=== PATIENT | male | born 1995 | race Caucasian/White ===

== ENCOUNTER 2024-01-06 15:53 | Emergency (ER) | payer OTHER, SELFPAY ==
[2024-01-06 16:05] VITALS: BP 153/86; PULSE 86; TEMP 36.8; O2SAT 99; BMI 22.4
--- NOTE | 2024-01-06 16:09 | XR_ITS ---
The [address] [address] Patient Name: MASSIMO VANCE MRN: [id number] date: 1995 Sex: M Assigned Patient Location: ER Current Patient Location: Accession/Order Number: [id number] Exam Date: 01/06/2024 16:35 Report Date: 01/06/2024 17:59 At the request of: JOSE CISNEROS Procedure: XR hand LT min 3V EXAM: XR hand LT min 3V HISTORY: trauma COMPARISON: None. TECHNIQUE: 3 views of left hand were obtained. FINDINGS: There is no evidence of an acute fracture or dislocation. The joint spaces are intact. No significant focal osseous abnormality is identified. The soft tissues are intact. XR/XR hand LT min 3V IMPRESSION: No acute fracture or dislocation. The joint spaces are intact throughout. Electronically authenticated by: OSMANI GALEANO Date: 01/06/2024 17:59
--- NOTE | 2024-01-06 17:04 | ED.UPPEXIN1 ---
HPI HPI - Extremity Injury (Upper) General Chief Complaint: Extremity Injury, Upper Stated Complaint: UPPER EXTREMITY INJURY Time Seen by Provider: 01/06/24 16:07 Mode of arrival: walk-in History of Present Illness HPI narrative: The patient is coming to the ER with left hand injury that he obtained while playing football he said that he was trying to catch the ball when it hit his thumb vertically, the patient has been complaining of pain in his left thumb since then There is a limitation of movement of the thumb due to the pain Related Data Previous Rx's ?Medication ?Instructions ?Recorded ibuprofen 600 mg tablet 600 mg PO Q8H #9 tabs 01/06/24 Allergies Allergy/AdvReac Type Severity Reaction Status Date / Time acetaminophen (From Vicodin) AdvReac Severe Dizziness Verified 01/06/24 16:04 hydrocodone (From Vicodin) AdvReac Severe Dizziness Verified 01/06/24 16:04 Opioid HPI Opioid Management Most Recent Pain and Opioid Data: Last Pain Scale 6 01/06/24 16:10 01/06/24 Review of Systems ROS Status of ROS 10 or more systems reviewed and unremarkable except as noted in history and below PFSH PFSH Social History Little interest or pleasure in doing things: not at all Feeling down, depressed, or hopeless: not at all Exam Narrative Exam Narrative: Nurses notes and vital signs reviewed and patient is not hypoxic. Right hand examination was benign left hand examination showed no vascular injury detected the patient has good radial pulse there is no open wounds and no deformities The patient have limitation of abduction of the thumb on the left hand due to pain no tenderness at the scaphoid fossa General: Well-appearing and in no apparent distress. Skin: Warm, dry, no pallor noted. No rash. Head: Normocephalic, atraumatic. Neck: Supple, non-tender. Eye: Pupils are equal, round and EOMI. No scleral icterus. Ears, Nose, Mouth, and Throat: TM are clear, no nasal mucosal hypertrophy. Oral mucosa is moist, no posterior oropharynx erythema, uvula is mid-line Cardiovascular: Regular Rate and Rhythm without murmur, gallop or rub. Respiratory: No accessory muscle use or respiratory distress. Lungs are clear to auscultation, no wheezing, rales or rhonchi Chest Wall: no tenderness Back: No midline thoracic or lumbar vertebral tenderness. No CVA tenderness Musculoskeletal: normal ROM, no calf or popliteal tenderness, no lower extremity edema/swelling GI: Abdomen is soft, non-distended. Normal bowel sounds. No masses appreciated. No tenderness to palpation. No rebound, guarding, or rigidity noted. Neurological: A&O x4. No cranial nerve dysfunction observed. No truncal ataxia. Moves all extremities. Sensation intact. Psychiatric: Cooperative and interactive. Normal mood and affect. Constitutional Vital Signs, click to edit/add: Last Vital Signs Temp 98.2 F 01/06/24 16:05 Pulse 86 01/06/24 16:05 Resp 18 01/06/24 16:05 BP 153/86 H 01/06/24 16:05 Pulse Ox 99 01/06/24 16:05 O2 Del Method Room Air 01/06/24 16:05 Course Vital Signs Vital signs: Vital Signs Temperature 98.2 F 01/06/24 16:05 Pulse Rate 86 01/06/24 16:05 Respiratory Rate 18 01/06/24 16:05 Blood Pressure 153/86 H 01/06/24 16:05 Pulse Oximetry 99 01/06/24 16:05 Oxygen Delivery Method Room Air 01/06/24 16:05 Temperature 98.2 F 01/06/24 16:05 Pulse Rate 86 01/06/24 16:05 Respiratory Rate 18 01/06/24 16:05 Blood Pressure 153/86 H 01/06/24 16:05 Pulse Oximetry 99 01/06/24 16:05 Oxygen Delivery Method Room Air 01/06/24 16:05 MDM - Extremity Injury (Upper) MDM Narrative Medical decision making narrative: X-ray of the left hand showed no acute pathology, the patient tenderness mostly at the base of the left thumb mostly at the metacarpophalangeal joint and the carpometacarpal carpal joint The patient still have full limited movement but with pain Placed in a thumb spica Presentation mostly secondary to tendinitis or CMC sprain Patient to follow-up with PCP for repeat x-ray in week in case of continuous pain The patient is to follow up with primary care physician in next 2-3 days or to return to the emergency department should any of the signs or symptoms worsen or new symptoms develop. The patient agrees with the following Diagnosis and Treatment plan and the patient will be discharged home. Discharge Plan Discharge Chief Complaint: Extremity Injury, Upper Clinical Impression: Tendonitis, CMC (carpometacarpal joint) sprains Patient Disposition: Home, Self-Care Time of Disposition Decision: 17:29 Condition: Good Prescriptions / Home Meds: New ibuprofen 600 mg tablet 600 mg PO Q8H Qty: 9 0RF Print Language: Vietnamese Instructions: Wrist Injury (ED), Tendinitis (ED) Referrals: Physician,Non-Staff, [Primary Care Provider] - 1 week Vince Luu MD [Physician] - 1 week Discharge Date/Time: 01/06/24 17:37
== END 2024-01-06 17:37 | disposition home or self-care (01) ==
PROVIDERS: Emergency Provider Emergency Medicine
DX: S63.682A Other sprain of left thumb, initial encounter (principal); W21.01XA Struck by football, initial encounter; M77.8 Other enthesopathies, not elsewhere classified
CPT/HCPCS: 73130; 99283